=== PATIENT | male | born 1935 | race Two or more races ===

== ENCOUNTER 2022-04-28 12:00 | Inpatient (IN) | payer MEDICARE ==
[~2022-04-28] VITALS: Ht 167.6 cm; Wt 64.4 kg
[2022-04-28] MEDS ORDERED: VANCOMYCIN 1G PREMIX 200 ML IV ONE (12:30)
[2022-04-28] MEDS ORDERED: PIPERACILLIN/TAZ 3.375G PREMIX 50 ML IV ONE (12:30)
[2022-04-28] MEDS ORDERED: SODIUM CHLORIDE 0.9% 1000ML BAG (SEPSIS BOLUS) IV ONE (12:30)
[2022-04-28 12:52] LABS: BASOPHILS % 0.6 % (0.0-2.0); HEMATOCRIT. 54.9 % (42.0-52.0); HEMOGLOBIN. 17.6 g/dL (14.0-18.0); LYMPHOCYTES % 11.9 % (20.0-50.0); MEAN CORPUSCULAR HEMOGLOBIN 28.6 pg (28.0-32.0); MEAN CORPUSCULAR VOLUME 89.4 fL (80.0-94.0); MEAN PLATELET VOLUME 11.7 fl (7.4-10.4); MONOCYTES % 9.3 % (2.0-8.0); NEUTROPHILS % 78.2 % (40.0-76.0); PLATELET 137 x1000/uL (130-400); RED BLOOD CELL COUNT 6.14 mill/uL (4.7-6.1); RED CELL DISTRIBUTION WIDTH 15.8 % (11.6-14.6)
[2022-04-28 12:56] LABS: CHLORIDE 136 mEq/L (98-107)
[2022-04-28 12:57] LABS: PROTHROMBIN TIME 11.2 sec (9.6-11.0)
[2022-04-28 13:33] LABS: CLARITY URINE CLOUDY (CLEAR); COLOR URINE DARK YELLOW (YELLOW); KETONES URINE 1+ (NEGATIVE); LEUKOCYTE ESTERASE URINE NEGATIVE (NEGATIVE); NITRITE URINE NEGATIVE (NEGATIVE); OCCULT BLOOD URINE NEGATIVE (NEGATIVE); PROTEIN URINE 2+ (NEGATIVE); SPECIFIC GRAVITY URINE 1.026 (1.005-1.030)
[2022-04-28] MEDS ORDERED: MIRT-89 PO (18:29)
[2022-04-28] MEDS ORDERED: CYAN-50 PO (18:29)
[2022-04-28] MEDS ORDERED: CALC-38 PO (18:30)
[2022-04-28] MEDS ORDERED: QUET50TA23 PO (18:31)
[2022-04-28] MEDS ORDERED: TAMS-11 PO (18:32)
[2022-04-28 20:00] VITALS: BP 111/58
[2022-04-28] MEDS ORDERED: ACETAMINOPHEN 325MG TABLET PO PRN (21:00)
[2022-04-28] MEDS: SODIUM CHLORIDE 0.9% 1,000 ML IV SCH (21:31)
[2022-04-28] MEDS: HEPARIN 5000 UNITS/ML VIAL SUBCUT SCH (21:32)
[2022-04-28 22:00] VITALS: BP 97/59
[2022-04-29] VITALS (13 sets, daily range): BP systolic 99–133; BP diastolic 47–103
[2022-04-29 06:11] LABS: PARTIAL THROMBOPLASTIN TIME 26.5 sec (23.4-31.0)
[2022-04-29 06:34] LABS: BASOPHILS % 0.5 % (0.0-2.0); EOSINOPHILS % 0.5 % (0.0-5.0); HEMATOCRIT. 51.6 % (42.0-52.0); HEMOGLOBIN. 16.4 g/dL (14.0-18.0); LYMPHOCYTES % 9.3 % (20.0-50.0); MEAN CORPUSCULAR HEMOGLOBIN 28.6 pg (28.0-32.0); MEAN PLATELET VOLUME 11.5 fl (7.4-10.4); MONOCYTES % 7.5 % (2.0-8.0); NEUTROPHILS % 82.2 % (40.0-76.0); PLATELET 85 x1000/uL (130-400); RED BLOOD CELL COUNT 5.73 mill/uL (4.7-6.1)
[2022-04-29] MEDS: SODIUM CHLORIDE 0.9% 1,000 ML IV SCH (07:23)
[2022-04-29] MEDS: HEPARIN 5000 UNITS/ML VIAL SUBCUT SCH ×2 (09:00→21:46)
[2022-04-29 12:17] LABS: CHLORIDE 138 mEq/L (98-107)
[2022-04-29] MEDS: TAMSULOSIN HCL 0.4MG SR CAPSULE PO SCH (13:45)
[2022-04-29] MEDS: PIPERACILLIN/TAZOBACTAM 3.375 G in DEXTROSE 5% WATER 50 ML IV SCH ×2 (13:45→21:46)
[2022-04-29] MEDS ORDERED: PIPERACILLIN/TAZOBACTAM 3.375 G in DEXTROSE 5% WATER 50 ML IV SCH (14:00)
[2022-04-29] MEDS ORDERED: DEXTROSE 5% WATER 1,000 ML IV ONE (15:15)
[2022-04-30] VITALS (12 sets, daily range): BP systolic 91–138; BP diastolic 52–85
[2022-04-30 06:24] LABS: BASOPHILS % 0.7 % (0.0-2.0); EOSINOPHILS % 1.6 % (0.0-5.0); HEMATOCRIT. 48.3 % (42.0-52.0); HEMOGLOBIN. 15.3 g/dL (14.0-18.0); LYMPHOCYTES % 13.5 % (20.0-50.0); MEAN CORPUSCULAR HEMOGLOBIN 28.5 pg (28.0-32.0); MEAN CORPUSCULAR VOLUME 90.1 fL (80.0-94.0); MEAN PLATELET VOLUME 11.5 fl (7.4-10.4); MONOCYTES % 8.9 % (2.0-8.0); NEUTROPHILS % 75.3 % (40.0-76.0); PLATELET 63 x1000/uL (130-400); RED BLOOD CELL COUNT 5.37 mill/uL (4.7-6.1)
[2022-04-30 07:49] LABS: CHLORIDE 139 mEq/L (98-107)
[2022-04-30] MEDS: HEPARIN 5000 UNITS/ML VIAL SUBCUT SCH ×2 (09:00→22:00)
[2022-04-30] MEDS: PIPERACILLIN/TAZOBACTAM 3.375 G in DEXTROSE 5% WATER 50 ML IV SCH ×2 (11:00→22:00)
[2022-04-30] MEDS: TAMSULOSIN HCL 0.4MG SR CAPSULE PO SCH (11:01)
[2022-04-30] MEDS: DEXTROSE 5% WATER 1,000 ML IV SCH (13:54)
[2022-05-01] VITALS (14 sets, daily range): BP systolic 86–131; BP diastolic 51–75
[2022-05-01] MEDS: DEXTROSE 5% WATER 1,000 ML IV SCH ×2 (08:27→21:11)
[2022-05-01] MEDS: PIPERACILLIN/TAZOBACTAM 3.375 G in DEXTROSE 5% WATER 50 ML IV SCH ×2 (08:28→21:11)
[2022-05-01] MEDS: TAMSULOSIN HCL 0.4MG SR CAPSULE PO SCH (08:28)
[2022-05-01] MEDS: HEPARIN 5000 UNITS/ML VIAL SUBCUT SCH ×2 (08:30→21:00)
[2022-05-01 15:13] LABS: BASOPHILS % 0.4 % (0.0-2.0); EOSINOPHILS % 3.5 % (0.0-5.0); HEMATOCRIT. 42.4 % (42.0-52.0); HEMOGLOBIN. 13.4 g/dL (14.0-18.0); LYMPHOCYTES % 19.2 % (20.0-50.0); MEAN CORPUSCULAR HEMOGLOBIN 28.2 pg (28.0-32.0); MEAN CORPUSCULAR VOLUME 89.2 fL (80.0-94.0); MEAN PLATELET VOLUME 11.5 fl (7.4-10.4); MONOCYTES % 6.6 % (2.0-8.0); NEUTROPHILS % 70.3 % (40.0-76.0); PLATELET 51 x1000/uL (130-400); RED BLOOD CELL COUNT 4.76 mill/uL (4.7-6.1); RED CELL DISTRIBUTION WIDTH 15.5 % (11.6-14.6)
[2022-05-01 17:33] LABS: CHLORIDE 127 mEq/L (98-107)
[2022-05-02] VITALS (10 sets, daily range): BP systolic 80–114; BP diastolic 51–68
[2022-05-02] MEDS: DEXTROSE 5% WATER 1,000 ML IV SCH (03:45)
[2022-05-02 06:20] LABS: BASOPHILS % 0.3 % (0.0-2.0); EOSINOPHILS % 3.2 % (0.0-5.0); HEMATOCRIT. 39.9 % (42.0-52.0); HEMOGLOBIN. 13.1 g/dL (14.0-18.0); LYMPHOCYTES % 11.6 % (20.0-50.0); MEAN CORPUSCULAR HEMOGLOBIN 28.6 pg (28.0-32.0); MEAN CORPUSCULAR VOLUME 87.4 fL (80.0-94.0); MONOCYTES % 7.1 % (2.0-8.0); NEUTROPHILS % 77.8 % (40.0-76.0); RED BLOOD CELL COUNT 4.56 mill/uL (4.7-6.1); RED CELL DISTRIBUTION WIDTH 15.3 % (11.6-14.6)
[2022-05-02 06:32] LABS: PLATELET 46 x1000/uL (130-400)
[2022-05-02] MEDS: TAMSULOSIN HCL 0.4MG SR CAPSULE PO SCH (08:38)
[2022-05-02] MEDS: PIPERACILLIN/TAZOBACTAM 3.375 G in DEXTROSE 5% WATER 50 ML IV SCH (08:39)
[2022-05-02] MEDS: HEPARIN 5000 UNITS/ML VIAL SUBCUT SCH ×2 (08:39→19:45)
[2022-05-02] MEDS ORDERED: CEFTRIAXONE 1,000 MG in DEXTROSE 5% WATER 50 ML IV SCH (11:00)
[2022-05-02] MEDS ORDERED: LORAZEPAM 1MG TABLET PO NR (12:15)
[2022-05-02 17:56] LABS: PLATELET ESTIMATE MARKEDLY DECREASED
[2022-05-03] VITALS (7 sets, daily range): BP systolic 98–110; BP diastolic 50–61
[2022-05-03 01:38] LABS: BASOPHILS % 0.4 % (0.0-2.0); EOSINOPHILS % 5.6 % (0.0-5.0); LYMPHOCYTES % 17.1 % (20.0-50.0); MEAN CORPUSCULAR HEMOGLOBIN 28.4 pg (28.0-32.0); MEAN CORPUSCULAR VOLUME 87.3 fL (80.0-94.0); MEAN PLATELET VOLUME 11.3 fl (7.4-10.4); MONOCYTES % 7.8 % (2.0-8.0); NEUTROPHILS % 69.1 % (40.0-76.0); RED BLOOD CELL COUNT 4.24 mill/uL (4.7-6.1); RED CELL DISTRIBUTION WIDTH 15.4 % (11.6-14.6)
[2022-05-03 01:50] LABS: PLATELET 47 x1000/uL (130-400)
[2022-05-03] MEDS: HEPARIN 5000 UNITS/ML VIAL SUBCUT SCH (09:00)
[2022-05-03] MEDS: TAMSULOSIN HCL 0.4MG SR CAPSULE PO SCH (09:00)
[2022-05-03] MEDS ORDERED: CEFTRIAXONE 1 G PREMIX 50 ML IV SCH (10:15)
[2022-05-03] MEDS ORDERED: CEFTRIAXONE 1,000 MG in DEXTROSE 5% WATER 50 ML IV SCH (11:00)
== END 2022-05-03 20:42 | DRG 70 ==
LOC: ER 12:12 → EDBEDREQ 12:27 → EDBEDREQSVC 13:58 → 5EST 14:11 → EDBEDREQ 14:14 → ENRESERV 16:35 → 8WST 05-02 05:49
PROVIDERS: ADMIT Internal Medicine; ATTEND Internal Medicine
DX: G93.41 Metabolic encephalopathy (principal); N17.0 Acute kidney failure with tubular necrosis; E87.0 Hyperosmolality and hypernatremia; N39.0 Urinary tract infection, site not specified; N18.9 Chronic kidney disease, unspecified; I95.9 Hypotension, unspecified; F03.90 Unspecified dementia, unspecified severity, without behavioral disturbance, psychotic disturbance, mood disturbance, and anxiety; R74.8 Abnormal levels of other serum enzymes; Z20.822 Contact with and (suspected) exposure to COVID-19
CPT/HCPCS: 36415; 71045; 76700; 80048; 80053; 81003; 83605; 83735; 83880; 84145; 84484; 85025; 87426; 93005; 99291; J0696; J1644; J2543; J3370; J7030; J7060; J7070